=== PATIENT | female | born 1950 | race Caucasian/White ===

== ENCOUNTER → 2017-05-29 | Outpatient (CLI) | payer OTHER | LOC: BMCIMAGING 13:28 | PROVIDERS: ATTEND Obstetrics & Gynecology Gynecology | DX: Z12.31 Encounter for screening mammogram for malignant neoplasm of breast (principal); Z80.3 Family history of malignant neoplasm of breast ==

== ENCOUNTER 2018-05-28 07:53 | Emergency (ER) | payer OTHER ==
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
[2018-05-28] MEDS ORDERED: IBUPROFEN 600 MG TAB PO ONE (08:14)
[2018-05-28 10:20] VITALS: BP 128/65
--- NOTE | 2018-06-06 12:32 | EDPHY ---
PA Addendum - Addendum .: Patients pelvic film read by radiology as demonstrating possible nondisplaced pubic fracture on the left. Patient without left sided complaints. Message left with her cell phone and recommend she follow up with PCP if she is having left sided or suprapubic symptoms.
== END 2018-05-28 10:19 | disposition home or self-care (01) ==
LOC: EDUNIT# → EDAGE
DX: M53.3 Sacrococcygeal disorders, not elsewhere classified (principal); M25.551 Pain in right hip; V49.50XA Passenger injured in collision with unspecified motor vehicles in traffic accident, initial encounter; Y92.410 Unspecified street and highway as the place of occurrence of the external cause

== ENCOUNTER → 2018-06-04 | Outpatient (CLI) | payer OTHER | LOC: BMCIMAGING 12:30 | PROVIDERS: ATTEND Obstetrics & Gynecology Gynecology | DX: Z12.31 Encounter for screening mammogram for malignant neoplasm of breast (principal); Z80.3 Family history of malignant neoplasm of breast ==

== ENCOUNTER → 2018-06-14 | Outpatient (CLI) | payer OTHER | LOC: FIMAGING 13:19 | PROVIDERS: ATTEND Registered Nurse | DX: M53.3 Sacrococcygeal disorders, not elsewhere classified (principal) ==